=== PATIENT | female | born 1945 | race American Indian/Alaskan Native ===

== ENCOUNTER 2025-02-27 01:23 | Emergency (ER) | payer MEDICARE, BC, SELFPAY ==
[2025-02-27 01:36] VITALS: BP 166/77
[2025-02-27 01:47] VITALS: BP 152/71
--- NOTE | 2025-02-27 01:59 | ED.GENMED ---
History of Present Illness
General
Chief Complaint: Heart Rate Problem
Source: patient, spouse and family (Son at bedside)
Exam Limitations: none
Time Seen by Provider: 02/27/25 01:46
Nursing documentation reviewed up to this point in time: agreed with
History of Present Illness
History of Present Illness:
The patient is a 79-year-old female with a history of paroxysmal along with atrial fibrillation who presented with another episode of arrhythmia. She reports having undergone a previous cardiac ablation approximately one year ago in [place], along
with the insertion of a Watchman device. The purpose of the Watchman procedure was to manage her atrial fibrillation while minimizing the need for long-term anticoagulation therapy with apixaban, which she had been on for more than a year. She has
undergone a transesophageal echocardiogram 6 months after Watchman procedure which was reportedly unremarkable and is scheduled for another follow-up transesophageal echocardiogram in March to evaluate the Watchman device as the planned study in
February was delayed due to travel. During the current episode, patient awoke approximately 1 hour ago with palpitations, her heart rate increased to 152 bpm. Mild lightheadedness with palpitations but no chest pain, no diaphoresis, no nausea.
Palpitations resolved shortly after arrival to the ED and lasted less than an hour. She has history of 2 similar episodes of palpitations related to A-fib, initially September 2023 and then again in January 2024. On both occasions spontaneously
converted without requiring cardioversion. She did require an IV dose of Cardizem in January and was also noted to have a low magnesium level requiring replacement at that time.
Current medications include metformin 500 mg once daily, telmisartan 40 mg once daily, vitamin D, vitamin A, Eliquis 2.5 mg twice daily, and [id number] magnesium supplements. . Her medications were otherwise reviewed and not found to be
contributory to her current presentation. This episode of atrial fibrillation caused some discomfort but was relatively short, lasting less than an hour, and was resolved before she arrived at the emergency room.
She and her reside in [place]. Currently visiting her son locally and they are planning to vacation in [facility] in 2 days time.
Past History
Past History
ED Past Medical History: Arrthythmia (Paroxysmal atrial fibrillation), HTN and NIDDM
ED Past Surgical History: Cardiac (A-fib ablation and Watchman procedure January 2024)
Social History
Tobacco: Non-smoker
Alcohol: None
Drug: None
Personal:
Living: with family
Family History
Family History: Other (Noncontributory)
Phy Exam
Physical Exam
Physical Exam:
GENERAL: 79-year-old woman appears her stated age, bright alert, pleasant, appears in no acute distress. Son and are accompanying.
EYE: anicteric
NECK: Supple, nontender, no meningismus, no significant adenopathy.
ENT: oral mucosa is moist. No rhinorrhea.
CARDIAC: Regular rate and rhythm. no murmur.
LUNGS: Clear breath sounds bilaterally, no acute respiratory distress, no wheezes/rales/rhonchi
ABDOMEN: Soft, nondistended, without focal tenderness
NEUROLOGICAL: Alert and oriented x3, no focal neuro deficits.
SKIN: Warm and dry, normal color, skin intact. No rash.
MUSCULOSKELETAL: No C/C/E. peripheral pulses are full and equal b/l. No palpable tenderness.
PSYCH: Normal and appropriate interaction.
Course
Orders/Labs/Results
Orders:
Orders
02/27/25 01:24
EKG [Electrocardiogram (*1)] Urgent
Reason for Study: Atrial Fibrillation
02/27/25 01:25
EKG- Treatment ONCE
02/27/25 02:05
Basic Metabolic Panel Urgent
Complete Blood Count/With Diff Urgent
Magnesium Urgent
TSH Reflex To Free T4 Urgent
Abnormal Lab Results
02/27/25
02:05
RBC 4.03 L 10^6/uL
(4.20-5.40)
MCH 32.3 H pg
(27.0-31.0)
Monocytes % 9.5 H %
(1.7-9.3)
Chloride 110 H mmol/L
(98-107)
BUN 18 H mg/dl
(7-17)
Glucose 131 H mg/dl
(70-99)
02/27/25 02:05
02/27/25 02:05
Vital Signs
Initial and Last Documented VS:
Initial Vital Signs
Temp Pulse Resp BP Pulse Ox
97.7 F 86 18 166/77 99
02/27/25 01:36 02/27/25 01:36 02/27/25 01:36 02/27/25 01:36 02/27/25 01:36
Last Documented Vital Signs
Temp Pulse Resp BP Pulse Ox
97.7 F 82 14 161/83 96
02/27/25 01:36 02/27/25 02:15 02/27/25 02:15 02/27/25 02:00 02/27/25 02:15
MDM/Problems Addressed
Differential Diagnosis Includes:
The Differential Diagnosis includes, in no particular order and is not limited to:
1. Atrial fibrillation recurrence
2. Medication side effects
3. Electrolyte imbalance
4. Thyroid dysfunction
5. Myocardial ischemia
6. Hypertensive emergency
7. Heart failure exacerbation
8. Pulmonary embolism
9. Anxiety-induced palpitations
10. Supraventricular tachycardia
MDM/Problems Addressed:
Acute palpitations/rapid heart beat, resolving spontaneously, lasting less than 1 hour.
Significant concern for recurrent A-fib, reassuring that episode was short-lived lasting less than 1 hour with spontaneous conversion to normal sinus rhythm.
No significant/concerning accompanying symptoms.
EKG shows normal sinus rhythm at a rate of 80, incomplete right bundle branch block, no acute ST-T wave abnormalities. No old EKG to compare.
Monitor continues to show normal sinus rhythm and she remains hemodynamically stable.
Will continue cardiac rehabilitation specialist.
Due to prior history of hypomagnesemia we will check labs including electrolytes, magnesium, CBC, thyroid function.
If no recurrent episodes of arrhythmia/A-fib, laboratory studies are unremarkable we will plan to discharge to home.
At this point I see no reason to cancel her travel plans especially in light of brief episode of A-fib. I would recommend she touch base with her paper sheeter later today to verify her travel plans and to discuss follow-up.
Chronic conditions affecting care: DM, HTN, Arrhythmia and Other (History of A-fib ablation, Watchman procedure)
*Pulse Oximetry
SaO2: 98
Oxygen Mode of Delivery: Room air
Patient hypoxic: no
*EKG
Interpreted by ED Provider?: Yes
Comparison EKG: no comparison EKG present
Rate: normal
Rhythm: sinus
[place]: normal axis
Interval: normal interval
QRS Pattern: right bundle branch block
Ischemia: no ischemia
*Patient Coordinator Front Desk Interpretation
Rate: normal
Interpretation: normal
Rhythm: sinus
*Critical Care Note
Total Time (30-74mins, 75-104mins- exclusive of procedures): Not Applicable
Update Note
Update Note:
03:00
Monitor continues to show normal sinus rhythm.
Labs are unremarkable including normal magnesium at 1.8. Normal TSH.
Will discharge to home.
Recommend patient touch base with her paper sheeter today or tomorrow.
ED Attending Note
-
Portions of this chart may have been created with voice recognition software.� Occasional wrong word or��sound alike� substitutions may have occurred due to the inherent limitations of voice recognition software.
Discharge Plan
Departure
Patient Disposition: Home (Routine Discharge)
Date of Disposition: 02/27/25
Time of Disposition: 02:58
Patient with high blood pressure during this ER visit?: No
Condition: Good
Discharge Problem:
Heart palpitations, History of atrial fibrillation
Instructions: Atrial Fibrillation (DC), Palpitations (DC)
Referrals:
UNKNOWN - PT DOES,NOT KNOW [Family Provider]
Activity Restrictions/Additional Instructions:
When office opens today, call your paper sheeter to report brief episode of A-fib.
At this point, I see no reason why you cannot travel to [facility] but recommend discussing with paper sheeter.
Continue your current medications as prescribed.
Interventions
Interventions:
*Risk Screen - Suicide Last Done: 02/27/25 01:28
*General Assessment Last Done: 02/27/25 01:50
*Neglect/Abuse Screening Last Done: 02/27/25 01:50
*ED- Fall Risk Assessment Last Done: 02/27/25 01:50
*ED COVID-19 Vaccine History Last Done: 02/27/25 01:50
*ED Influenza Vaccine History Last Done: 02/27/25 01:50
ED- Cardiac Assessment Last Done: 02/27/25 01:49
ED- Pulmonary Assessment Last Done: 02/27/25 01:49
Discharge Date and Time
Print Language: AZERI
[2025-02-27 02:00] VITALS: BP 161/83
[2025-02-27 02:18] LABS: Hematocrit 38.7 % (37.0-47.0); Hemoglobin 13.0 g/dL (12.0-16.0); Mean Corp Hgb Conc. 33.6 g/dL (33.0-37.0); Mean Corpuscular Volume 96.0 fL (81.0-99.0); Nucleated Red Blood Cells % 0 %; Platelet Count 223 10^3/uL (130-400); Red Cell Dist. Width 11.7 % (11.5-14.5)
[2025-02-27 02:23] LABS: Blood Urea Nitrogen 18 mg/dl (7-17); Calcium 9.5 mg/dl (8.4-10.2); Carbon Dioxide 24 mmol/L (22-30); Chloride 110 mmol/L (98-107); Glucose 131 mg/dl (70-99); Magnesium 1.8 mg/dl (1.6-2.3); Potassium 3.8 mmol/L (3.5-5.1); Sodium 139 mmol/L (135-145); eGFR > 60.00
[2025-02-27 03:12] VITALS: BP 161/83
== END 2025-02-27 03:13 | disposition home or self-care (01) ==
LOC: EMR 01:23
PROVIDERS: EMERGENCY PHYSICIAN Emergency Medicine
DX: R00.2 Palpitations (principal); I45.10 Unspecified right bundle-branch block; I48.0 Paroxysmal atrial fibrillation; E11.9 Type 2 diabetes mellitus without complications; I10 Essential (primary) hypertension; Z79.01 Long term (current) use of anticoagulants; Z79.84 Long term (current) use of oral hypoglycemic drugs; Z95.818 Presence of other cardiac implants and grafts
CPT/HCPCS: 99284; 80048; 83735; 84443; 85025; 93005